=== PATIENT | female | born 1990 | race Caucasian/White ===

== ENCOUNTER 2016-07-15 18:08 | Emergency (ER) | payer BC ==
[2016-07-15 18:59] VITALS: BP 112/68
[2016-07-15] MEDS ORDERED: Diphtheria,Pertussis(Acell),Tetanus Vaccine 0.5 ML SDV inactive IM ONE (19:26)
[2016-07-15] MEDS ORDERED: Lidocaine 1% 50 ML MDV INJECT ONE (19:26)
--- NOTE | 2016-07-15 19:27 | EDM.PDOC ---
ED HPI Skin/Rash - General Chief Complaint: Laceration Stated Complaint: L THUMB LAC Time Seen by Provider: 07/15/16 19:20 Source: Reports: Patient History Limitations: Reports: No limitations - History of Present Illness INITIAL COMMENTS - FREE TEXT/NARRATIVE: Patient presents for evaluation and treatment of a laceration to the left, dorsal proximal thumb. Patient reports that she was opening a can when she cut her thumb on the can. She reports initial numbness and tingling but this has now resolved. She has a laceration over the left proximal phalanx. Unsure of last tetanus. Patient is right-handed. Location, Skin: Reports: upper extremity, left - Related Data Allergies Allergy/AdvReac Type Severity Reaction Status Date / Time Penicillins Allergy Redness Verified 07/15/16 19:01 Sulfa (Sulfonamide Allergy Redness Verified 07/15/16 19:01 Antibiotics) Home Meds: Ambulatory Orders Medication Instructions Recorded Confirmed Control 1 tab PO DAILY 07/15/16 07/15/16 Past Medical History - Past Health History Medical/Surgical History: Denies Medical/Surgical History Social & Family History - Tobacco Use Smoking Status *Q: Never Smoker - Caffeine Use Caffeine Use: Reports: Soda - Recreational Drug Use Recreational Drug Use: No ED ROS GENERAL - Review of Systems Review Of Systems: See Below Musculoskeletal: Reports: hand pain (left hand dorsal proximal phalnex) Neurological: Denies: Numbness, Tingling (numbess and tingling initially, now resolved ) ED EXAM, SKIN/RASH Exam: See Below Exam Limited By: No limitations General Appearance: alert, WD/WN, no apparent distress Respiratory/Chest: no respiratory distress Cardiovascular: normal peripheral pulses Peripheral Pulses: 2+: radial (L), radial (R) Neurological: alert, oriented, normal cognition Psychiatric: normal affect, normal mood Skin: Warm, Dry Location, Skin: upper extremity, left (1.5 cm laceration to the left proximal dorsal thumb subcutaneous) ED SKIN PROCEDURES - Laceration/Wound Repair Left Dorsal Finger Lac/wound length in cm: 1.5 Appearance: subcutaneous Distal NVT: neuro & vascular intact, no tendon injury Anesthetic type: local Local anesthesia - Lidocaine (Xylocaine): 1% plain Local anesthetic volume: 2cc Skin prep: saline, sterile drape Closed with: sutures Suture size: other (5-0) # of sutures: 3 Sterile dressing applied: nurse Tetanus status addressed: Yes Complications: No Course - Vital Signs Last Recorded V/S: Last Vital Signs Temp 37.2 C 07/15/16 18:57 Pulse 79 07/15/16 18:57 Resp 20 07/15/16 18:57 BP 112/68 07/15/16 18:57 Pulse Ox 100 07/15/16 18:57 - Orders/Labs/Meds Orders: Active Orders 24 hr Category Date Time Status Vaccines to be Administered [RC] PER UNIT ROUTINE Care 07/15/16 19:26 Active Meds: Medications Discontinued Medications Generic Name Dose Route Start Last Admin Trade Name Dinesh PRN Reason Stop Dose Admin Diphtheria/Tetanus/Acell Pertussis 0.5 ml 07/15/16 19:26 07/15/16 19:51 Boostrix IM 07/15/16 19:27 0.5 ml .ONCE ONE Administration Lidocaine HCl 50 ml 07/15/16 19:26 07/15/16 19:51 Xylocaine 1% INJECT 07/15/16 19:27 50 ml ONETIME ONE Administration - Re-Assessments/Exams Free Text/Narrative Re-Assessment/Exam: 07/15/16 20:00 3 sutures placed to the left, proximal, dorsal thumb. Patient tolerated the procedure well. No complications. Tetanus was updated. Will discharge home at this time. Discharge instructions as documented. Departure - Departure Time of Disposition: 20:01 Disposition: Home, Self-Care 01 Condition: good Clinical Impression: Laceration Instructions: Laceration Care, Adult, [id number] Referrals: Earnestine Nina MD [Primary Care Provider] - Forms: ED Department Discharge Additional Instructions: Wash with gentle soap and water twice a day. Antibacterial ointment to the wound twice a day for the next 3 days. Keep the wound covered while at work or any situations where the wound may become contaminated, otherwise leave open to air. Monitor for signs of infection such as increased swelling, pus or redness. Presents to the clinic or the ER should these develop. have The sutures removed in 7-[address] [facility] located on the first floor of the [address] is open 8am to 5 PM Saturday through Saturday will remove the sutures for free. Please return to ER for any problems, questions or concerns - My Orders Last 24 Hours: My Active Orders 07/15/16 19:26 Vaccines to be Administered [RC] PER UNIT ROUTINE - Assessment/Plan Last 24 Hours: My Active Orders 07/15/16 19:26 Vaccines to be Administered [RC] PER UNIT ROUTINE
== END 2016-07-15 20:15 | disposition home or self-care (01) ==
LOC: JD.ED 18:08
PROC: 0HQGXZZ Repair Left Hand Skin, External Approach (ICD-10-PCS; principal; 2016-07-15)
DX: S61.012A Laceration without foreign body of left thumb without damage to nail, initial encounter (principal); Z79.3 Long term (current) use of hormonal contraceptives; Z88.0 Allergy status to penicillin; Z88.2 Allergy status to sulfonamides; Z23 Encounter for immunization
CPT/HCPCS: 12001; 12041; 90715; 99282-25; 99283-25